=== PATIENT | female | born 1975 | race American Indian/Alaskan Native ===

== ENCOUNTER 2017-08-13 10:39 | Emergency (ER) | payer BC ==
[2017-08-13 11:00] VITALS: BP 123/81
--- NOTE | 2017-08-13 13:46 | Emergency Department Report ---
ED Back Pain/Injury HPI - General Chief Complaint: Back Pain/Injury Stated Complaint: BUTTOCK PAIN Time Seen by Provider: 08/13/17 13:37 Source: patient Limitations: No Limitations - History of Present Illness Initial Comments: 42-year-old female past medical history diabetes, obesity presents with complaint of left buttock pain that radiates down left lateral thigh. Patient states it started yesterday. Patient states she has been more active than usual because she has been moving around furniture at home over the last few weeks secondary to move. Denies any direct trauma. Denies any recent falls. Denies any rash on skin. Denies any abdominal pain dysuria hematuria and nausea vomiting. Denies any saddle paresthesias or bladder or bowel incontinence. Patient is ambulatory without assistance. Has not taken any medicines at home for the pain. Describes the pain as intermittent and worse when she raises her left thigh. Patient states that she can feel it radiating from her left buttock to her left lateral thigh. Denies any upper back pain. Denies any radiation of pain to groin. States pain feels better when she lies down in the position. MD Complaint: back pain Onset/Timin -: days(s) Place: home Radiation: buttocks, left leg Severity: moderate Severity scale (0 -10): 7 Quality: sharp, aching Consistency: intermittent Improves With: supine Worsens With: movement Context: turning/twisting, bending Associated Symptoms: denies other symptoms - Related Data Previous Rx's Medication Instructions Recorded Last Taken Type Acetaminophen/Codeine [Tylenol 1 tab PO Q6H PRN #15 tab 08/23/15 Unknown Rx /Codeine # 3 tab] Sulfamethoxazole/Trimethoprim 1 each PO BID #14 tablet 08/23/15 Unknown Rx [Bactrim DS TAB] metFORMIN [Glucophage] 500 mg PO BID #60 tablet 08/23/15 Unknown Rx Acetaminophen/Codeine [Tylenol 1 tab PO Q8H PRN #9 tab 08/13/17 Unknown Rx /Codeine # 3 tab] Ibuprofen [Motrin] 800 mg PO Q8HR PRN #25 tablet 08/13/17 Unknown Rx Allergies Allergy/AdvReac Type Severity Reaction Status Date / Time No Known Allergies Allergy Unverified 08/13/17 11:00 ED Review of Systems ROS: Stated complaint: BUTTOCK PAIN Other details as noted in HPI Constitutional: denies: chills, fever Eyes: denies: eye pain, eye discharge, vision change ENT: denies: ear pain, throat pain Respiratory: denies: cough, shortness of breath, wheezing Cardiovascular: denies: chest pain, palpitations Endocrine: no symptoms reported Gastrointestinal: denies: abdominal pain, nausea, diarrhea Genitourinary: denies: urgency, dysuria, discharge Musculoskeletal: as per HPI. denies: back pain, joint swelling, arthralgia Skin: denies: rash, lesions Neurological: denies: headache, weakness, paresthesias Psychiatric: denies: anxiety, depression Hematological/Lymphatic: denies: easy bleeding, easy bruising ED Past Medical Hx - Past Medical History Previous Medical History?: Yes Hx Diabetes: Yes - Surgical History Past Surgical History?: No - Social History Smoking Status: Current Every Day Smoker Substance Use Type: None - Medications Home Medications: Home Medications Medication Instructions Recorded Confirmed Last Taken Type Acetaminophen/Codeine [Tylenol 1 tab PO Q6H PRN #15 tab 08/23/15 Unknown Rx /Codeine # 3 tab] Sulfamethoxazole/Trimethoprim 1 each PO BID #14 tablet 08/23/15 Unknown Rx [Bactrim DS TAB] metFORMIN [Glucophage] 500 mg PO BID #60 tablet 08/23/15 Unknown Rx Acetaminophen/Codeine [Tylenol 1 tab PO Q8H PRN #9 tab 08/13/17 Unknown Rx /Codeine # 3 tab] Ibuprofen [Motrin] 800 mg PO Q8HR PRN #25 tablet 08/13/17 Unknown Rx ED Physical Exam - General Limitations: No Limitations General appearance: alert, in no apparent distress - Head Head exam: Present: atraumatic, normocephalic - Eye Eye exam: Present: normal appearance, PERRL, EOMI - ENT ENT exam: Present: mucous membranes moist - Neck Neck exam: Present: normal inspection, full ROM - Respiratory Respiratory exam: Present: normal lung sounds bilaterally. Absent: respiratory distress - Cardiovascular Cardiovascular Exam: Present: regular rate, normal rhythm. Absent: systolic murmur, diastolic murmur, rubs, gallop - GI/Abdominal GI/Abdominal exam: Present: soft, normal bowel sounds - Rectal Rectal exam: Present: normal rectal tone - Extremities Exam Extremities exam: Present: normal inspection - Back Exam Back exam: Present: normal inspection, full ROM (patient has no midline cervical thoracic or lumbar spinal tenderness. Has no CVA tenderness bilaterally) - Expanded Back Exam Expanded Back exam: Present: normal rectal tone Back exam: Sciatic Notch Tenderness: Left, Positive Straight Leg Raise: Left ( at 30 degrees) - Neurological Exam Neurological exam: Present: alert, oriented X3, CN II-XII intact, normal gait - Expanded Neurological Exam Expanded Patient oriented to: Present: person, place, time Cranial nerves: EOM's Intact: Normal, Facial Sensation: Normal Cerebellar function: Finger to Nose: Normal, Romberg: Normal Sensory exam: Upper Extremity Light Touch: Normal, Lower Extremity Light Touch: Normal Motor strength exam: RUE: 5, LUE: 5, RLE: 5, LLE: 5 DTR: knee (R): 3+, knee (L): 3+, ankle (R): 3+, ankle (L): 3+ Best Eye Response (Yenny): (4) open spontaneously Best Motor Response (Wyatt): (6) obeys commands Best Verbal Response (Yenny): (5) oriented Yenny Total: 15 - Psychiatric Psychiatric exam: Present: normal affect, normal mood - Skin Skin exam: Present: warm, dry, intact, normal color. Absent: rash ED Course Vital Signs 08/13/17 10:54 Temperature 97.4 F L Pulse Rate 94 H Respiratory 16 Rate Blood Pressure 123/81 O2 Sat by Pulse 100 Oximetry ED Medical Decision Making - Medical Decision Making A/P: Sciatica-like symptoms vs piriformis syndrome left buttock 1-no clinical signs or symptoms of renal colic 2-short course of Motrin and Tylenol 3 for pain 3-follow up with primary care and ortho 4- patient has no clinical signs of cauda equina. No clinical indication for imaging at this time. Rectal tone intact no bladder or bowel incontinence strength 5 out of 5 bilateral lower extremities and deep tendon reflexes are intact bilaterally. I advised her to return to the ED for any signs of paralysis in lower extremities loss of bladder or bowel control Critical care attestation.: If time is entered above; I have spent that time in minutes in the direct care of this critically ill patient, excluding procedure time. ED Disposition Clinical Impression: Sciatica of left side Disposition: - TO HOME OR SELFCARE Is pt being admited?: No Does the pt Need Aspirin: No Condition: Stable Instructions: Sciatica (ED) Prescriptions: Acetaminophen/Codeine [Tylenol /Codeine # 3 tab] 1 tab PO Q8H PRN #9 tab PRN Reason: Pain Ibuprofen [Motrin] 800 mg PO Q8HR PRN #25 tablet PRN Reason: Pain Referrals: ELSA LAUREANO MD [Primary Care Provider] - 3-5 Days [facility] [Provider Group] - 3-5 Days [facility] [Provider Group] - 3-5 Days MARTÍN VALLADARES MD [Staff Physician] - 3-5 Days Time of Disposition: 14:03
[2017-08-13] MEDS ORDERED: TORADOL IM ONE (13:55)
== END 2017-08-13 14:27 | disposition home or self-care (01) ==
LOC: ED 10:39
DX: M54.32 Sciatica, left side (principal); I10 Essential (primary) hypertension; E11.9 Type 2 diabetes mellitus without complications
CPT/HCPCS: 96372; 99282; J1885

== ENCOUNTER 2019-03-04 13:32 | Emergency (ER) | payer BC, OTHER ==
--- NOTE | 2019-03-04 13:41 | Emergency Department Report ---
Blank Doc - Documentation Documentation: 43-year-old female that presents with abdominal pain with n/v and fever. This initial assessment/diagnostic orders/clinical plan/treatment(s) is/are subject to change based on patient's health status, clinical progression and re- assessment by fellow clinical providers in the ED. Further treatment and workup at subsequent clinical providers discretion. Patient/guardians urged not to elope from the ED as their condition may be serious if not clinically assessed and managed. Initial orders include: 1- Patient sent to MAIN ED for further evaluation and treatment 2- code sepsis protocol 3- labs 4- UA 5- Zofran ODT
[2019-03-04] MEDS ORDERED: ONDANSETRON 4 MG ODT TAB PO ONE ×2 (13:42→13:45)
[2019-03-04] MEDS ORDERED: ONDANSETRON 4 MG ODT TAB ONE (13:44)
[2019-03-04] MEDS ORDERED: SODIUM CHLORIDE 0.9% 1000 ML IV SOLN IV ONE (14:09)
[2019-03-04 14:13] LABS: Basophils # (Auto) 0.1 K/mm3 (0.0-0.1); Eosinophils % (Auto) 0.4 % (0.0-4.3); Hematocrit 44.8 % (30.3-42.9); Hemoglobin 15.1 gm/dl (10.1-14.3); Lymphocytes # (Auto) 1.9 K/mm3 (1.2-5.4); Lymphocytes % (Auto) 20.1 % (13.4-35.0); Mean Corpuscular HGB Conc 34 % (30-34); Mean Corpuscular Volume 87 fl (79-97); Monocytes # (Auto) 0.8 K/mm3 (0.0-0.8); Monocytes % (Auto) 8.4 % (0.0-7.3); Platelet Count 301 K/mm3 (140-440); Red Blood Count 5.16 M/mm3 (3.65-5.03)
[2019-03-04] MEDS ORDERED: fentaNYL 100 MCG/2 ML INJ IV ONE ×2 (14:24→17:36)
[2019-03-04] MEDS ORDERED: ACETAMINOPHEN 500 MG TAB PO ONE (14:28)
[2019-03-04 14:29] LABS: Alanine Aminotransferase 9 units/L (7-56); Albumin 3.7 g/dL (3.9-5); BUN/Creatinine Ratio 20; Blood Urea Nitrogen 10 mg/dL (7-17); Calcium 8.9 mg/dL (8.4-10.2); Hemolysis Index 6
--- NOTE | 2019-03-04 14:30 | Emergency Department Report ---
HPI - General Chief Complaint: Abdominal Pain Time Seen by Provider: 03/04/19 13:39 - HPI HPI: Room 17 The patient is a 43-year-old female presenting with a chief complaint of abdominal pain. The patient states she's had right flank pain for the past 1-2 months. The patient states she went to [place] emergency department approximately one month ago and had x-rays performed. The patient states she is uncertain of blood work was performed. The patient states she was prescribed an antibiotic for her symptoms never improved. The patient states 3 days ago she developed pain in the left side of her abdomen described as a pressure and sharpness. Jhonny whelan admits to nausea and vomiting but denies dysuria or vaginal discharge. Patient denies previous history of fever or diarrhea. Patient currently gives her pain a score of 10/10 Location: [See above] Duration: [See above] Quality: [See above] Severity: [See above] Timing: [See above] Context: [See above] Modifying factors: [See above] Associated signs and symptoms: [see above] ED Past Medical Hx - Past Medical History Previous Medical History?: Yes Hx Diabetes: Yes - Surgical History Past Surgical History?: No - Family History Family history: no significant - Social History Smoking Status: Current Every Day Smoker (1-2 cigarettes daily) Substance Use Type: None (denies illicit drug use) - Medications Home Medications: Home Medications Medication Instructions Recorded Confirmed Last Taken Type Acetaminophen/Codeine [Tylenol 1 tab PO Q6H PRN #15 tab 08/23/15 Unknown Rx /Codeine # 3 tab] Sulfamethoxazole/Trimethoprim 1 each PO BID #14 tablet 08/23/15 Unknown Rx [Bactrim DS TAB] metFORMIN [Glucophage] 500 mg PO BID #60 tablet 08/23/15 Unknown Rx Acetaminophen/Codeine [Tylenol 1 tab PO Q8H PRN #9 tab 08/13/17 Unknown Rx /Codeine # 3 tab] Ibuprofen [Motrin] 800 mg PO Q8HR PRN #25 tablet 08/13/17 Unknown Rx HYDROcodone/APAP 5-325 [[place] 1 - 2 each PO Q6HR PRN #14 tablet 03/04/19 Unknown Rx 5/325] Ibuprofen [Motrin 800 MG tab] 800 mg PO Q8HR PRN #20 tablet 03/04/19 Unknown Rx Promethazine [Phenergan] 25 mg PO Q6HR PRN #20 tab 03/04/19 Unknown Rx Promethazine [Phenergan] 25 mg TX Q6HR PRN #5 supp.rect 03/04/19 Unknown Rx levoFLOXacin [Levaquin] 750 mg PO QDAY #10 tablet 03/04/19 Unknown Rx ED Review of Systems ROS: Stated complaint: LFT SIDE PAIN/EXTREME/VOMIT Other details as noted in HPI Constitutional: no symptoms reported. denies: fever Eyes: denies: eye pain ENT: denies: throat pain Respiratory: no symptoms reported Cardiovascular: denies: chest pain Endocrine: no symptoms reported Gastrointestinal: abdominal pain, nausea, vomiting Genitourinary: denies: dysuria, discharge Musculoskeletal: denies: back pain Neurological: denies: headache Physical Exam - Physical Exam Vital Signs: Vital Signs 03/04/19 13:40 Temperature 100.5 F H Pulse Rate 114 H Respiratory 20 Rate Blood Pressure 122/99 O2 Sat by Pulse 100 Oximetry Physical Exam: GENERAL: The patient is well-developed well-nourished female lying on stretcher appearing to be in mild discomfort. [] HEENT: Normocephalic. Atraumatic. Extraocular motions are intact. Patient has moist mucous membranes. NECK: Supple. Trachea midline CHEST/LUNGS: Clear to auscultation. There is no respiratory distress noted. HEART/CARDIOVASCULAR: Regular. There is no tachycardia. There is no gallop rub or murmur. ABDOMEN: Abdomen is soft, tenderness to palpation greatest in the left upper quadrant and suprapubic region. Trace discomfort to palpation in the midep igastric and right upper quadrant. There is no tenderness to palpation in left lower quadrant. Patient has normal bowel sounds. There is no abdominal distention. SKIN: There is no rash. There is no edema. There is no diaphoresis. NEURO: The patient is awake, alert, and oriented. The patient is cooperative. The patient has normal speech MUSCULOSKELETAL: There is no evidence of acute injury. ED Course Vital Signs 03/04/19 13:40 Temperature 100.5 F H Pulse Rate 114 H Respiratory 20 Rate Blood Pressure 122/99 O2 Sat by Pulse 100 Oximetry ED Medical Decision Making - Lab Data Result diagrams: 03/04/19 13:52 03/04/19 13:52 Laboratory Tests 03/04/19 03/04/19 03/04/19 13:45 13:52 13:52 WBC 9.5 RBC 5.16 H Hgb 15.1 H Hct 44.8 H MCV 87 MCH 29 MCHC 34 RDW 14.0 Plt Count 301 Lymph % (Auto) 20.1 [place] % (Auto) 8.4 H Eos % (Auto) 0.4 Baso % (Auto) 1.0 Lymph # 1.9 [place] # 0.8 Eos # 0.0 Baso # 0.1 Seg Neutrophils % 70.1 H Seg Neutrophils # 6.7 VBG pH Sodium 135 L Potassium 4.0 Chloride 98.3 Carbon Dioxide 19 L Anion Gap 22 BUN 10 Creatinine 0.5 L Estimated GFR > 60 BUN/Creatinine Ratio 20 Glucose 370 H POC Glucose 343 H Lactic Acid Calcium 8.9 Total Bilirubin 0.70 AST 10 ALT 9 Alkaline Phosphatase 74 Total Protein 8.1 Albumin 3.7 L Albumin/Globulin Ratio 0.8 Lipase 13 HCG, Qual Urine Color Urine Turbidity Urine pH Ur Specific [place] Urine Protein Urine Glucose (UA) Urine Ketones Urine Blood Urine Nitrite Urine Bilirubin Urine Urobilinogen Ur Leukocyte Esterase Urine WBC (Auto) Urine RBC (Auto) U Epithel Cells (Auto) Urine Bacteria (Auto) Urine WBC Clumps Urine Mucus 03/04/19 03/04/19 03/04/19 13:52 13:52 14:33 WBC RBC Hgb Hct MCV MCH MCHC RDW Plt Count Lymph % (Auto) [place] % (Auto) Eos % (Auto) Baso % (Auto) Lymph # [place] # Eos # Baso # Seg Neutrophils % Seg Neutrophils # VBG pH 7.419 Sodium Potassium Chloride Carbon Dioxide Anion Gap BUN Creatinine Estimated GFR BUN/Creatinine Ratio Glucose POC Glucose Lactic Acid 1.80 Calcium Total Bilirubin AST ALT Alkaline Phosphatase Total Protein Albumin Albumin/Globulin Ratio Lipase HCG, Qual Negative Urine Color Urine Turbidity Urine pH Ur Specific [place] Urine Protein Urine Glucose (UA) Urine Ketones Urine Blood Urine Nitrite Urine Bilirubin Urine Urobilinogen Ur Leukocyte Esterase Urine WBC (Auto) Urine RBC (Auto) U Epithel Cells (Auto) Urine Bacteria (Auto) Urine WBC Clumps Urine Mucus 03/04/19 15:15 WBC RBC Hgb Hct MCV MCH MCHC RDW Plt Count Lymph % (Auto) [place] % (Auto) Eos % (Auto) Baso % (Auto) Lymph # [place] # Eos # Baso # Seg Neutrophils % Seg Neutrophils # VBG pH Sodium Potassium Chloride Carbon Dioxide Anion Gap BUN Creatinine Estimated GFR BUN/Creatinine Ratio Glucose POC Glucose Lactic Acid Calcium Total Bilirubin AST ALT Alkaline Phosphatase Total Protein Albumin Albumin/Globulin Ratio Lipase HCG, Qual Urine Color Yellow Urine Turbidity Cloudy Urine pH 5.0 Ur Specific [place] 1.024 Urine Protein 30 mg/dl Urine Glucose (UA) >=500 Urine Ketones 20 Urine Blood Lg Urine Nitrite Pos Urine Bilirubin Neg Urine Urobilinogen < 2.0 Ur Leukocyte Esterase Mod Urine WBC (Auto) > 182.0 H Urine RBC (Auto) 12.0 U Epithel Cells (Auto) 4.0 Urine Bacteria (Auto) 1+ Urine WBC Clumps 3+ Urine Mucus Few - Radiology Data Radiology results: report reviewed (CT abdomen and pelvis, chest x-ray), image reviewed (CT abdomen and pelvis, chest x-ray) interpreted by me: Chest x-ray-no focal infiltrates, no pneumothorax [facility] [address] [id number] Cat Scan Report Signed Patient: DL DELA CRUZ MR#: [id number] : 1975 Acct:[id number] Age/Sex: 43 / F ADM Date: 03/04/19 Loc: ED Attending Dr: Ordering Physician: REGI ALMAZAN MD Date of Service: 03/04/19 Procedure(s): CT abdomen pelvis w con Accession Number(s): [id number] cc: REGI ALMAZAN MD CT ABDOMEN AND PELVIS WITH CONTRAST INDICATION / CLINICAL INFORMATION: right flank, left upper quadrant pain. TECHNIQUE: Axial CT images were obtained through the abdomen and pelvis after 100 cc Omnipaque 300 milligrams percent IV contrast. All CT scans at this location are performed using CT dose reduction for ALARA by means of automated exposure control. Also delayed imaging was performed COMPARISON: None available. FINDINGS: LOWER CHEST: No significant ab normality. LIVER: No significant abnormality. GALLBLADDER: Multiple calculi present involving the gallbladder with gallbladder distention BILE DUCTS: No significant abnormality. PANCREAS: No significant abnormality. SPLEEN: No significant abnormality. ADRENALS: No significant abnormality. RIGHT KIDNEY and URETER: No significant abnormality. LEFT KIDNEY and URETER: Moderate dilatation of the left collecting system-ureter is present with reticulation of fat surrounding the left ureter without definite evidence of a calculus in the course of the left ureter. Delayed imaging demonstrated the ureter to the level of the urinary bladder STOMACH and SMALL BOWEL: No significant abnormality. COLON: Diverticulosis descending colon APPENDIX: No significant abnormality. PERITONEUM: No free fluid. No free air. No fluid collection. LYMPH NODES: No significant adenopathy. AORTA and ARTERIES: No significant abnormality. IVC and VEINS: No significant abnormality. URINARY BLADDER: No significant abnormality. REPRODUCTIVE ORGANS: No significant abnormality. ADDITIONAL FINDINGS: None. SKELETAL SYSTEM: No significant abnormality. IMPRESSION: 1. Dilatation of the left collecting system with reticulation of fat along the ureter without evidence of a focal obstruction, recommend clinical correlation retrograde Polygram may be of benefit 2. Cholelithiasis Signer Name: Reginaldo Pires MD Signed: 03/04/2019 4:39 PM Workstation Name: [id number] Transcribed By: WG Dictated By: Reginaldo Pires MD Electronically Authenticated By: Reginaldo Pires MD Signed Date/Time: 03/04/19 163 DD/ 1550 TD/TT: [place] [address] XRay Report Signed Patient: DL DELA CRUZ MR#: [id number] : Acct:[id number] Age/Sex: 43 / F ADM Date: 03/04/19 Loc: ED Attending Dr: Ordering Physician: BELEM PATEL NP Date of Service: 03/04/19 Procedure(s): XR chest 1V ap Accession Number(s): [id number] cc: BELEM PATEL NP Fluoro Time In Minutes: CHEST 1 VIEW INDICATION: sepsis. COMPARISON: None FINDINGS: Support devices: None. Heart: Within normal limits. Lungs/Pleura: No acute air space or interstitial disease. Additional findings: None. IMPRESSION: 1. No acute findings. Signer Name: Beny Garcia MD Signed: 03/04/2019 2:29 PM Workstation Name: [id number] Transcribed By: JED Dictated By: Beny Garcia MD Electronically Authenticated By: Beny Garcia MD Signed Date/Time: 03/04/19 142 DD/ 142 TD/TT: - Differential Diagnosis pyelonephritis, renal colic, diverticulitis, Critical care attestation.: If time is entered above; I have spent that time in minutes in the direct care of this critically ill patient, excluding procedure time. ED Disposition Clinical Impression: Pyelonephritis, Left flank pain, Hydroureter, left Disposition: TO HOME OR SELFCARE Is pt being admited?: No Does the pt Need Aspirin: No Condition: Stable Instructions: Abdominal Pain (ED) Additional Instructions: Return to the emergency department should you develop worsening symptoms, inability to tolerate food or liquids, high fever or any other concerns Prescriptions: levoFLOXacin [Levaquin] 750 mg PO QDAY #10 tablet Ibuprofen [Motrin 800 MG tab] 800 mg PO Q8HR PRN #20 tablet PRN Reason: Pain, Moderate (4-6) HYDROcodone/APAP 5-325 [[place] 5/325] 1 - 2 each PO Q6HR PRN #14 tablet PRN Reason: Pain Promethazine [Phenergan] 25 mg PO Q6HR PRN #20 tab PRN Reason: Nausea Promethazine [Phenergan] 25 mg TX Q6HR PRN #5 supp.rect PRN Reason: Vomiting Referrals: PRIMARY CARE, [Primary Care Provider] - 3-5 Days ADELAIDA BELTRÁN MD [Staff Physician] - [facility] (Dr. Beltrán is a urologist. Please follow up with him for further evaluation) Time of Disposition: 17:18
--- NOTE | 2019-03-04 14:34 | XRay Report ---
CHEST 1 VIEW INDICATION: sepsis. COMPARISON: None FINDINGS: Support devices: None. Heart: Within normal limits. Lungs/Pleura: No acute air space or interstitial disease. Additional findings: None. IMPRESSION: 1. No acute findings. Signer Name: Beny Garcia MD Signed: 03/04/2019 2:29 PM Workstation Name: [id number]
[2019-03-04] MEDS ORDERED: SODIUM CHLORIDE 0.9% 1000 ML 2,000 ML IV ONE (14:51)
[2019-03-04 15:48] LABS: Bacteria,Urine 1+ /HPF (Negative); Bilirubin,Urine NEG (Negative); Blood,Urine LG (Negative); Color,Urine Yellow (Yellow); Mucus,Urine FEW /HPF; Urobilinogen,Urine < 2.0 mg/dL (<2.0)
[2019-03-04 15:49] LABS: WBC,Urine > 182.0 /HPF (0.0-6.0)
[2019-03-04] MEDS ORDERED: levoFLOXacin 750 MG TAB PO ONE (16:00)
--- NOTE | 2019-03-04 16:43 | Cat Scan Report ---
CT ABDOMEN AND PELVIS WITH CONTRAST INDICATION / CLINICAL INFORMATION: right flank, left upper quadrant pain. TECHNIQUE: Axial CT images were obtained through the abdomen and pelvis after 100 cc Omnipaque 300 milligrams pe rcent IV contrast. All CT scans at this location are performed using CT dose reduction for ALARA by means of automated exposure control. Also delayed imaging was performed COMPARISON: None available. FINDINGS: LOWER CHEST: No significant abnormality. LIVER: No significant abnormality. GALLBLADDER: Multiple calculi present involving the gallbladder with gallbladder distention BILE DUCTS: No significant abnormality. PANCREAS: No significant abnormality. SPLEEN: No significant abnormality. ADRENALS: No significant abnormality. RIGHT KIDNEY and URETER: No significant abnormality. LEFT KIDNEY and URETER: Moderate dilatation of the left collecting system-ureter is present with reti culation of fat surrounding the left ureter without definite evidence of a calculus in the course of the left ureter. Delayed imaging demonstrated the ureter to the level of the urinary bladder STOMACH and SMALL BOWEL: No significant abnormality. COLON: Diverticulosis descending colon APPENDIX: No significant abnormality. PERITONEUM: No free fluid. No free air. No fluid collection. LYMPH NODES: No significant adenopathy. AORTA and ARTERIES: No significant abnormality. IVC and VEINS: No significant abnormality. URINARY BLADDER: No significant abnormality. REPRODUCTIVE ORGANS: No significant abnormality. ADDITIONAL FINDINGS: None. SKELETAL SYSTEM: No significant abnormality. IMPRESSION: 1. Dilatation of the left collecting system with reticulation of fat along the ureter without evidenc e of a focal obstruction, recommend clinical correlation retrograde Polygram may be of benefit 2. Cholelithiasis Signer Name: Reginaldo Pires MD Signed: 03/04/2019 4:39 PM Workstation Name: [id number]
[2019-03-04] MEDS ORDERED: METOCLOPRAMIDE 10 MG/2 ML INJ IV ONE (17:36)
[2019-03-04 18:08] VITALS: BP 136/76
== END 2019-03-04 18:52 | disposition home or self-care (01) ==
LOC: ED 13:32
DX: N12 Tubulo-interstitial nephritis, not specified as acute or chronic (principal); N13.4 Hydroureter; F17.200 Nicotine dependence, unspecified, uncomplicated; E11.9 Type 2 diabetes mellitus without complications; Z79.899 Other long term (current) drug therapy
CPT/HCPCS: 36415; 71045; 74177; 80053; 81001; 82140; 82805; 82962; 83690; 84703; 85025; 87040; 87086; 96361; 96374; 96375; 96376; 99284; J2765; J3010; J7030; Q9967; 87076; 87186; Q0162